=== PATIENT | female | born 1975 | race Two or more races ===

== ENCOUNTER 2024-07-13 12:59 | Emergency (ER) | payer OTHER ==
[~2024-07-13] VITALS: Ht 157.5 cm; Wt 63.5 kg
[~2024-07-13 12:59] MED LIST: LOSARTAN POTASS25 MG PO
[2024-07-13] MEDS ORDERED: BUTALB/ACETAMINOPHEN/CAFFEINE 1 TAB TABLET PO ONE ×2 (16:45→17:31)
[2024-07-13 17:38] LABS: HEMATOCRIT 31.1 % (36.0-45.00); HEMOGLOBIN 9.3 g/dL (12.0-15.00); MEAN CORPUSCULAR HEMOGLOBIN 20.1 pg (27.00-32.0); MEAN CORPUSCULAR HGB CONC 29.9 g/dl (32.0-36.0); RED BLOOD COUNT 4.63 M/uL (4.00-6.00); RED CELL DISTRIBUTION WIDTH 20.8 % (11.5-14.5)
[2024-07-13 17:51] LABS: INR 0.98; PARTIAL THROMBOPLASTIN TIME 21.7 SECONDS (22.0-34.0); PROTHROMBIN TIME 10.7 SECONDS (9.0-11.5)
[2024-07-13 17:52] LABS: MEAN CELL VOLUME 67.2 fL (80.00-100.00); PLATELET COUNT 202 K/uL (150-450)
[2024-07-13 17:54] LABS: ALBUMIN 3.8 gm/dL (3.4-5.0); BILIRUBIN TOTAL 0.4 mg/dL (0.3-1.2); CALCIUM 9.2 mg/dL (8.5-10.1); CREATININE SERUM 0.72 mg/dL (0.55-1.02); GFR 86.45; GLOBULINA 3.8 G/DL (2.4-3.5); POTASSIUM 4.91 mEq/L (3.5-5.1); TOTAL PROTEIN 7.6 gm/dL (6.4-8.2)
== END 2024-07-13 18:14 | disposition home or self-care (01) ==
LOC: ER 13:00
PROVIDERS: General Practice
DX: R53.81 Other malaise (principal); R25.2 Cramp and spasm; I10 Essential (primary) hypertension

== ENCOUNTER 2024-07-15 11:54 | Inpatient (IN) | payer OTHER ==
[~2024-07-15] VITALS: Ht 152.4 cm; Wt 68.0 kg
--- NOTE | 2024-07-15 12:58 | NUR ---
PTE ALERTA Y ORIENTADA X3 REFIERE VENIR A DEIRDRE DEBIDO A QUE LA MISMA FAIRBANKS ESTADO TENIENDO DOLOR EN EL LADO BRENDA DE AL ELIZA DESDE EL VIERNES. SE MIDEN S/V Y SE UBICA.
--- NOTE | 2024-07-15 14:01 | NUR ---
PACIENTE ALERTA Y ORIENTADA X3. SE EDUCA A PACIENTE SOBRE PROCESO DE ANGELA DE MUESTRAS Y CANALIZACION, REFIERE ENTENDER. SE EJECUTAN ORDENES BAJO MEDIDAS ASEPTICAS. PENDIENTE A CT.
[2024-07-15 14:15] LABS: HEMATOCRIT 30.9 % (36.0-45.00); MEAN CORPUSCULAR HEMOGLOBIN 20.7 pg (27.00-32.0); PLATELET COUNT 444 K/uL (150-450); RED BLOOD COUNT 4.62 M/uL (4.00-6.00); RED CELL DISTRIBUTION WIDTH 20.8 % (11.5-14.5)
[2024-07-15 14:16] LABS: HEMOGLOBIN 9.6 g/dL (12.0-15.00); MEAN CELL VOLUME 66.8 fL (80.00-100.00)
[2024-07-15 14:19] LABS: INR 0.98; PARTIAL THROMBOPLASTIN TIME 26.3 SECONDS (22.0-34.0); PROTHROMBIN TIME 10.7 SECONDS (9.0-11.5)
[2024-07-15 14:25] LABS: ALBUMIN 3.7 gm/dL (3.4-5.0); BILIRUBIN TOTAL 0.37 mg/dL (0.3-1.2); CREATININE SERUM 0.73 mg/dL (0.55-1.02); GFR 85.09; GLOBULINA 3.7 G/DL (2.4-3.5); POTASSIUM 4.81 mEq/L (3.5-5.1); TOTAL PROTEIN 7.4 gm/dL (6.4-8.2)
[2024-07-15 15:40] LABS: PH,URINE 5.5 (5.0-8.0); URINE APPEARANCE Clear; URINE BILIRRUBIN Negative (NEGATIVE); URINE BLOOD Moderate; URINE COLOR Yellow; URINE GLUCOSE Negative (NEGATIVE); URINE KETONE Negative (NEGATIVE); URINE LEUKOCYTE Negative; URINE NITRATE Negative; URINE PROTEIN Negative (NEGATIVE); URINE UROBILINOGEN 0.2 E.U./dl
[2024-07-15 15:43] LABS: URINE BACTERIA 41.6 uL (0.0-1933); URINE RBC 450.6 uL (0.0-20.8); URINE WBC 6.2 uL (0.0-23.2)
[2024-07-15] MEDS ORDERED: FAMOtidine 10 MG/ML (4ML VIAL) IV ONE (16:30)
[2024-07-15] MEDS ORDERED: LevETIRAcetam 500 MG/5 ML VIAL IV SCH (17:00)
--- NOTE | 2024-07-15 17:30 | NUR ---
CANALIZACION SE INFILTRA, SE REMUEVE LA MISMA. SE INTENTA CANALIZAR A PACIENTE EN VARIAS OCASIONES PARA ADMINISTRACION DE MEDICAMENTOS IV, SIN EXITO.
[2024-07-16 08:22] VITALS: O2SAT 100
[2024-07-16] MEDS ORDERED: LOSARTAN POTASSIUM 25 MG TABLET PO SCH (10:36)
[2024-07-16] MEDS ORDERED: ATORVASTATIN CALCIUM 40 MG TABLET PO SCH (10:42)
[2024-07-16] MEDS ORDERED: 0.9 % SODIUM CHLORIDE 1,000 ML IV SCH (10:45)
[2024-07-16] MEDS ORDERED: ASPIRIN 81 MG TABLET.EC PO SCH (10:49)
[2024-07-16] MEDS ORDERED: ENOXAPARIN SODIUM 60 MG/0.6 ML SYRINGE SUBCUTANEO SCH (10:49)
[2024-07-16 20:56] LABS: TSH 1.18 uIU/mL (0.358-3.74)
[2024-07-16 22:49] VITALS: BP 177/89
[2024-07-17 01:05] VITALS: BP 137/81
[2024-07-17 08:56] VITALS: BP 140/100
[2024-07-17 17:00] VITALS: BP 125/60
[2024-07-17] MEDS ORDERED: CLOPIDOGREL BISULFATE 75 MG TABLET PO NR (18:00)
[2024-07-18 00:48] VITALS: BP 158/79
[2024-07-18 08:59] VITALS: BP 160/85
[2024-07-18] MEDS ORDERED: CLOPIDOGREL BISULFATE 75 MG TABLET PO SCH (17:00)
[2024-07-18 17:53] VITALS: BP 115/75
[2024-07-18 18:13] VITALS: BP 183/90
[2024-07-19 01:22] VITALS: BP 159/90
[2024-07-19 06:47] LABS: HEMATOCRIT 28.6 % (36.0-45.00); MEAN CORPUSCULAR HGB CONC 31.1 g/dl (32.0-36.0); PLATELET COUNT 409 K/uL (150-450); RED BLOOD COUNT 4.31 M/uL (4.00-6.00); RED CELL DISTRIBUTION WIDTH 20.4 % (11.5-14.5)
[2024-07-19 06:56] LABS: HEMOGLOBIN 8.9 g/dL (12.0-15.00); MEAN CELL VOLUME 66.3 fL (80.00-100.00); MEAN CORPUSCULAR HEMOGLOBIN 20.6 pg (27.00-32.0)
[2024-07-19 07:08] LABS: ALBUMIN 3.2 gm/dL (3.4-5.0); BILIRUBIN TOTAL 0.2 mg/dL (0.3-1.2); CALCIUM 8.8 mg/dL (8.5-10.1); CREATININE SERUM 0.68 mg/dL (0.55-1.02); GFR 92.35; GLOBULINA 3.2 G/DL (2.4-3.5); POTASSIUM 4.68 mEq/L (3.5-5.1); TOTAL PROTEIN 6.4 gm/dL (6.4-8.2)
[2024-07-19 08:13] VITALS: BP 152/88
[2024-07-19] MEDS ORDERED: LOSARTAN POTASSIUM 50 MG TABLET PO SCH (09:00)
[2024-07-19 17:12] VITALS: BP 140/80
[2024-07-20 01:38] VITALS: BP 137/81
[2024-07-20 08:17] VITALS: BP 163/109
== END 2024-07-20 12:08 | disposition home or self-care (01) | DRG 281 ==
LOC: ER 11:55 → MEDI 07-16 12:43
PROVIDERS: General Practice; ADMIT Internal Medicine; ATTEND Internal Medicine
PROC: B030ZZZ Magnetic Resonance Imaging (MRI) of Brain (ICD-10-PCS; principal; 2024-07-15)
PROC: BW28ZZZ Computerized Tomography (CT Scan) of Head (ICD-10-PCS; 2024-07-15)
PROC: BW28ZZZ Computerized Tomography (CT Scan) of Head (ICD-10-PCS; 2024-07-15)
PROC: BW2FYZZ Computerized Tomography (CT Scan) of Neck using Other Contrast (ICD-10-PCS; 2024-07-15)
PROC: B246ZZZ Ultrasonography of Right and Left Heart (ICD-10-PCS; 2024-07-17)
PROC: B345ZZZ Ultrasonography of Bilateral Common Carotid Arteries (ICD-10-PCS; 2024-07-17)
PROC: B030Y0Z Magnetic Resonance Imaging (MRI) of Brain using Other Contrast, Unenhanced and Enhanced (ICD-10-PCS; 2024-07-18)
DX: I21.9 Acute myocardial infarction, unspecified (principal); G81.12 Spastic hemiplegia affecting left dominant side; I10 Essential (primary) hypertension; R20.0 Anesthesia of skin; R47.1 Dysarthria and anarthria
CPT/HCPCS: 70552

== ENCOUNTER 2024-07-23 06:23 | Outpatient (CLI) | payer OTHER ==
[2024-07-24 13:10] LABS: HOMOCYSTEINE 7.4 umol/L (0.0-14.5)
[2024-07-24 15:06] LABS: ANTI CARDIO IGA < 9 APL U/mL (0-11); ANTI CARDIO IGG < 9 GPL U/mL (0-14); ANTI CARDIO IGM 12 MPL U/mL (0-12)
[2024-07-25 13:09] LABS: ANTI-THROMBIN III 121 % (75-135); PROTEIN C ACTIVITY 132 % (73-180); PROTEIN S ACTIVITY 63 % (63-140)
[2024-07-25 15:06] LABS: dRVVT 36.3 sec (0.0-47.0); interp Comment: (.); ptt-la 34.3 sec (0.0-43.5)
== END 2024-07-23 06:33 | disposition home or self-care (01) ==
LOC: LAB 06:23
PROVIDERS: ATTEND Internal Medicine
DX: I67.9 Cerebrovascular disease, unspecified (principal)

== ENCOUNTER 2024-08-16 07:44 | Outpatient (CLI) | payer OTHER ==
[2024-08-16 08:37] LABS: HEMATOCRIT 30.1 % (36.0-45.00); HEMOGLOBIN 9.1 g/dL (12.0-15.00); MEAN CORPUSCULAR HEMOGLOBIN 20.2 pg (27.00-32.0); MEAN CORPUSCULAR HGB CONC 30.2 g/dl (32.0-36.0); PLATELET COUNT 476 K/uL (150-450); RED CELL DISTRIBUTION WIDTH 20.7 % (11.5-14.5)
[2024-08-16 09:09] LABS: PH,URINE 5.5 (5.0-8.0); URINE APPEARANCE Clear; URINE BILIRRUBIN Negative (NEGATIVE); URINE BLOOD Trace; URINE COLOR Yellow; URINE GLUCOSE Negative (NEGATIVE); URINE KETONE Negative (NEGATIVE); URINE LEUKOCYTE Negative; URINE NITRATE Negative; URINE PROTEIN Negative (NEGATIVE); URINE UROBILINOGEN 0.2 E.U./dl
[2024-08-16 09:14] LABS: URINE BACTERIA 29.3 uL (0.0-1933); URINE EPITHELIAL CELLS 2.5 uL (0.0-38.8); URINE WBC 1.8 uL (0.0-23.2)
[2024-08-16 09:33] LABS: URINE CAST 0.14 uL (0.0-1.40); URINE RBC 0.5 uL (0.0-20.8)
[2024-08-16 09:45] LABS: ALBUMIN 3.7 gm/dL (3.4-5.0); BILIRUBIN TOTAL 0.23 mg/dL (0.3-1.2); CALCIUM 9.2 mg/dL (8.5-10.1); CHOL HDL RATIO 2.9 (0-5.0); CREATININE SERUM 0.78 mg/dL (0.55-1.02); GFR 78.83; GLOBULINA 3.5 G/DL (2.4-3.5); POTASSIUM 4.99 mEq/L (3.5-5.1); T4 FREE 1.07 NG/ML (0.76-1.46); TOTAL PROTEIN 7.2 gm/dL (6.4-8.2); TSH 0.958 uIU/mL (0.358-3.74)
== END 2024-08-16 07:50 | disposition home or self-care (01) ==
LOC: LAB 07:44
PROVIDERS: ATTEND Obstetrics & Gynecology
DX: Z00.00 Encounter for general adult medical examination without abnormal findings (principal); I10 Essential (primary) hypertension; E03.9 Hypothyroidism, unspecified; E78.00 Pure hypercholesterolemia, unspecified; N39.0 Urinary tract infection, site not specified; Z11.4 Encounter for screening for human immunodeficiency virus [HIV]; Z12.11 Encounter for screening for malignant neoplasm of colon; E55.9 Vitamin D deficiency, unspecified; Z21 Asymptomatic human immunodeficiency virus [HIV] infection status; R79.9 Abnormal finding of blood chemistry, unspecified; R79.89 Other specified abnormal findings of blood chemistry

== ENCOUNTER 2024-08-16 11:28 | Outpatient (CLI) | payer OTHER | END 2024-08-16 11:29 | disposition home or self-care (01) | LOC: NUCLEAR 11:28 | PROVIDERS: ATTEND Internal Medicine Hematology & Oncology | DX: I82.402 Acute embolism and thrombosis of unspecified deep veins of left lower extremity (principal); I82.401 Acute embolism and thrombosis of unspecified deep veins of right lower extremity ==

== ENCOUNTER 2024-08-16 13:07 | Outpatient (CLI) | payer OTHER | END 2024-08-16 13:16 | disposition home or self-care (01) | LOC: MAMO-SONO 13:07 | PROVIDERS: ATTEND Obstetrics & Gynecology | DX: N63 Unspecified lump in breast (principal); N64.59 Other signs and symptoms in breast; N64.9 Disorder of breast, unspecified; N94.0 Mittelschmerz; R10.2 Pelvic and perineal pain; N94.89 Other specified conditions associated with female genital organs and menstrual cycle ==

== ENCOUNTER 2024-08-17 07:39 | Outpatient (CLI) | payer OTHER ==
[2024-08-17 11:03] LABS: ob NEGATIVE (NEGATIVE)
== END 2024-08-17 07:41 | disposition home or self-care (01) ==
LOC: LAB 07:39
PROVIDERS: ATTEND Obstetrics & Gynecology
DX: Z00.00 Encounter for general adult medical examination without abnormal findings (principal); I10 Essential (primary) hypertension; E03.9 Hypothyroidism, unspecified; E78.00 Pure hypercholesterolemia, unspecified; Z11.4 Encounter for screening for human immunodeficiency virus [HIV]; Z12.11 Encounter for screening for malignant neoplasm of colon; E55.9 Vitamin D deficiency, unspecified; Z21 Asymptomatic human immunodeficiency virus [HIV] infection status; R79.9 Abnormal finding of blood chemistry, unspecified; R79.89 Other specified abnormal findings of blood chemistry